=== PATIENT | male | born 1995 | race Caucasian/White ===

== ENCOUNTER 2017-08-05 18:27 | Inpatient (IN) | payer SELFPAY ==
[2017-08-05] MEDS ORDERED: ONDANSETRON 4 MG/2 ML VIAL IVP ONE (18:40)
[2017-08-05] MEDS ORDERED: fentaNYL 100 MCG/2 ML INJ IVP ONE (18:40)
[2017-08-05] MEDS ORDERED: NS 1,000 ML IV ONE (18:40)
--- NOTE | 2017-08-05 18:47 | EDPHY ---
H & P Smoking Status: Current every day smoker Time Seen by Provider: 08/05/17 18:34 HPI/ROS: CHIEF COMPLAINT: Right-sided abdominal pain HISTORY OF PRESENT ILLNESS: 21-year-old man developed abdominal pain at around 3:00 a.m. Today. Got worse when he woke up and now is localized to the right lower quadrant, worse with any movement and bumps in the car on the way here driven by his older brother. Pain severe, does not radiate. No fevers or chills no nausea or vomiting no diarrhea and no recent injury or trauma. No urinary or testicular symptoms. REVIEW OF SYSTEMS: Eye: no change in vision ENT: no sore throat Cardiac: no chest pain or syncope Pulmonary: no cough or SOB Abdomen: HPI Musculoskeletal: no back pain Skin: no rash Neuro: no headache Constitutional: no fever : no urinary symptoms A comprehensive 10 point review of systems is otherwise negative aside from elements mentioned in the history of present illness. PAST MEDICAL HISTORY: Negative Social history: Occasional alcohol, tobacco smoker General Appearance: Alert and conversant, cooperative. Eyes: No scleral icterus. ENT, Mouth: Normal mucous membranes. Respiratory: Normal respiratory effort, breath sounds equal, lungs are clear to auscultation. Cardiovascular: Regular rate and rhythm. Gastrointestinal: Normal male . McBurney's point tenderness with referred pain in the right lower quadrant on palpation of the left lower quadrant. Guarding and rebound in the right lower quadrant. Neurological: Alert, face symmetric, normal motor and sensory in extremities. Skin: Warm and dry, no rashes. Musculoskeletal: No peripheral edema. Psychiatric: Not agitated. Emergency Department course/MDM: Fentanyl 100 mcg IV. Surgical consultation for probable appendicitisYolanda in ED at 1999. Likely IV antibiotics and to OR. (Efraín Stearns) Constitutional: Initial Vital Signs Temperature (C) 36.6 C 08/05/17 18:30 Heart Rate 80 08/05/17 18:30 Respiratory Rate 18 08/05/17 18:30 Blood Pressure 176/132 H 08/05/17 18:30 O2 Sat (%) 97 08/05/17 18:30 O2 Delivery Mode Room Air Allergies/Adverse Reactions: No Known Allergies Allergy (Unverified 08/05/17 18:30) Home Medications: Medication Instructions Recorded NK [No Known Home Meds] 08/05/17 Medical Decision Making Consult/Admit Bed Type: Yolanda Cummings4 will see in ED, no CT ED Course/Re-evaluation: This patient was signed out to me at change of shift. Dr. David Guerrero saw the patient and he is in agreement that the patient most likely has acute appendicitis and an acute abdomen. He will take the patient to the operating room. I have ordered Flagyl 500 mg and Levaquin 7 her 50 mg IV preoperatively. Patient is comfortable. (Channing Anderson) Differential Diagnosis: Differential considered including but not limited to renal colic, UTI, appendicitis, mesenteric adenitis (Efraín Stearns) - Data Points Laboratory Results: Laboratory Results 08/05/17 18:40 08/05/17 08/05/17 18:45 18:40 WBC 15.33 10^3/uL H 10^3/uL (3.80-9.50) RBC 4.32 10^6/uL L 10^6/uL (4.40-6.38) Hgb 13.1 g/dL L g/dL (13.7-17.5) POC Hgb 14.6 gm/dL gm/dL (13.7-17.5) Hct 39.6 % L % (40.0-51.0) POC Hct 43 % % (40-51) MCV 91.7 fL fL (81.5-99.8) MCH 30.3 pg pg (27.9-34.1) MCHC 33.1 g/dL g/dL (32.4-36.7) RDW 13.1 % % (11.5-15.2) Plt Count 376 10^3/uL 10^3/uL (150-400) MPV 9.2 fL fL (8.7-11.7) Neut % (Auto) 83.2 % H % (39.3-74.2) Lymph % (Auto) 7.9 % L % (15.0-45.0) Graves % (Auto) 7.4 % % (4.5-13.0) Eos % (Auto) 0.8 % % (0.6-7.6) Baso % (Auto) 0.2 % L % (0.3-1.7) Nucleat RBC Rel Count 0.0 % % (0.0-0.2) Absolute Neuts (auto) 12.77 10^3/uL H 10^3/uL (1.70-6.50) Absolute Lymphs (auto) 1.21 10^3/uL 10^3/uL (1.00-3.00) Absolute Monos (auto) 1.13 10^3/uL H 10^3/uL (0.30-0.80) Absolute Eos (auto) 0.12 10^3/uL 10^3/uL (0.03-0.40) Absolute Basos (auto) 0.03 10^3/uL 10^3/uL (0.02-0.10) Absolute Nucleated RBC 0.00 10^3/uL 10^3/uL (0-0.01) Immature Gran % 0.5 % % (0.0-1.1) Immature Gran # 0.07 10^3/uL 10^3/uL (0.00-0.10) POC Sodium 137 mEq/L mEq/L (135-145) POC Potassium 3.5 mEq/L mEq/L (3.3-5.0) POC Chloride 100 mEq/L mEq/L (97-110) POC BUN 15 mg/dL mg/dL (7-23) POC Creatinine 1.2 mg/dL mg/dL (0.7-1.3) POC Glucose 103 mg/dL H mg/dL (70-100) Medications Given: Levofloxacin/Dextrose (Levaquin 750 Mg (Premix)) 150 mls @ 100 mls/hr IV EDNOW ONE PRN Reason: Protocol Stop: 08/05/17 21:45 Last Admin: 08/05/17 20:33 Dose: 150 mls Metronidazole/Sodium Chloride (Flagyl 500 Mg (Premix)) 100 mls @ 100 mls/hr IV EDNOW ONE PRN Reason: Protocol Stop: 08/05/17 21:15 Last Admin: 08/05/17 20:25 Dose: 100 mls Discontinued Medications Fentanyl (Sublimaze) 100 mcg IVP EDNOW ONE Stop: 08/05/17 18:41 Last Admin: 08/05/17 18:52 Dose: 100 mcg Hydromorphone HCl (Dilaudid) 0.5 mg IVP EDNOW ONE Stop: 08/05/17 20:14 Last Admin: 08/05/17 20:25 Dose: 0.5 mg Sodium Chloride (Ns) 1,000 mls @ 0 mls/hr IV EDNOW ONE; Wide Open PRN Reason: Protocol Stop: 08/05/17 18:41 Last Admin: 08/05/17 18:52 Dose: 1,000 mls Ondansetron HCl (Zofran) 4 mg IVP EDNOW ONE Stop: 08/05/17 18:41 Last Admin: 08/05/17 18:53 Dose: 4 mg Point of Care Test Results: Chemistry 08/05/17 18:45 POC Sodium 137 mEq/L mEq/L (135-145) POC Potassium 3.5 mEq/L mEq/L (3.3-5.0) POC Chloride 100 mEq/L mEq/L (97-110) POC BUN 15 mg/dL mg/dL (7-23) POC Creatinine 1.2 mg/dL mg/dL (0.7-1.3) POC Glucose 103 mg/dL H mg/dL (70-100) ISTAT H&H 08/05/17 18:45 POC Hgb 14.6 gm/dL gm/dL (13.7-17.5) POC Hct 43 % % (40-51) Departure - Departure Disposition: To OP Cath/Surgery Clinical Impression: Acute appendicitis Qualifiers: Acute appendicitis type: with localized peritonitis Qualified Code(s): K35.3 - Acute appendicitis with localized peritonitis Condition: Good
[2017-08-05 19:01] LABS: PLATELET COUNT 376 10^3/uL (150-400)
[2017-08-05] MEDS ORDERED: HYDROmorphONE/DILAUDID 2 MG/ML INJ IVP ONE (20:13)
[2017-08-05] MEDS ORDERED: BUPIVACAINE/EPI 0.5% 30 ML SDV ONE (20:41)
--- NOTE | 2017-08-05 20:48 | GHP ---
[f rep st] PREOP HISTORY AND PHYSICAL DATE OF ADMISSION: 08/05/2017 CHIEF COMPLAINT: Right lower quadrant pain. PRESENT ILLNESS: A 21-year-old male who states he awoke early this morning with a right lower abdomi nal pain. He had trouble walking. Bumps in the car on the ride to the hospital were very painful. Hoda tamez has been nauseated. He has never felt like this before. Laboratory exams included a white blood c ount of 15,000. ALLERGIES: None. CURRENT MEDICATIONS: None. SOCIAL HISTORY: Smokes quarter pack of cigarettes a day. Used to smoke a pack a day. Drinks a cathy le of whiskey every 3 days, which he states is less than he used to drink. He is employed at [employer]. REVIEW OF SYSTEMS: Denies asthma, heart trouble, diabetes, epilepsy, rheumatic fever. PREVIOUS SURGERY: None. PHYSICAL EXAM: GENERAL APPEARANCE: Ill-appearing male, diaphoretic, mildly tachycardic, slightly hy pertensive. HEENT: Poor dentition. No scleral icterus. Pharynx clear. NECK: Supple without chente opathy. LUNGS: Clear. HEART: Normal. S1, S2, but a heart rate of 115. ABDOMEN: Soft except the right lower quadrant has guarding and rebound. There is referred pain from the left to the right as well. ASSESSMENT: Probable acute appendicitis. Other sources of severe right lower quadrant pain in a you ng male would be much less common such as perforated Meckel diverticulitis, diverticulitis, etc., and this seems unusually severe for a viral disorder such as mesenteric adenitis. I discussed with the patient the role of CT scanning or other imaging and stated that with his severe pain, I did not feel we needed imaging to help us make a decision. I have recommended we proceed with an appendectomy. I explained this might be done laparoscopically or open. Risks and benefits, including potential for prolonged need for hospitalization and antibiotic should the appendix be ruptured were all explained to the patient. He is anxious to proceed. /[id number]/MODL
[2017-08-05] MEDS ORDERED: LR 1,000 ML IV ONE (20:51)
--- NOTE | 2017-08-05 20:51 | PDANEPAE ---
ANE History of Present Illness appendectomy ANE Past Medical History - Cardiovascular History Hx Hypertension: No Hx Arrhythmias: No Hx Chest Pain: No Hx Coronary Artery / Peripheral Vascular Disease: No Hx CHF / Valvular Disease: No Hx Palpitations: No - Pulmonary History Hx COPD: No Hx Asthma/Reactive Airway Disease: No Hx Recent Upper Respiratory Infection: No Hx Oxygen in Use at Home: No Hx Sleep Apnea: No Pulmonary History Comment: shortness of breath in high school - Endocrine History Hx Diabetes: No Hypothyroid: No Hyperthyroid: No Obesity: mild - Renal History Hx Renal Disorders: No - Liver History Hx Hepatic Disorders: No - Neurological & Psychiatric Hx Hx Neurological and Psychiatric Disorders: No - Cancer History Hx Cancer: No - Congenital Disorder History Hx Congenital Disorders: No - GI History GERD: no Hx Gastrointestinal Disorders: Yes - Chronic Pain History Chronic Pain: No - Surgical History Prior Surgeries: None ANE Review of Systems Review of Systems: - Exercise capacity METS (RN): 4 METS ANE Patient History - Allergies Allergies/Adverse Reactions: No Known Allergies Allergy (Unverified 08/05/17 18:30) - Home Medications Home Medications: NK [No Known Home Meds] 08/05/17 [Last Taken Unknown] - NPO status NPO Since - Liquids (Date): 08/05/17 NPO Since - Liquids (Time): 18:00 NPO Since - Solids (Date): 08/05/17 NPO Since - Solids (Time): 13:00 - Anes Hx Hx Anesthesia Complications (with details): no prior surgery - Smoking Hx Smoking Status: Current every day smoker Marijuana use: Yes - Alcohol Use Alcohol Use: Other (about 1 gallon/week) - Family Anes Hx Family Anes Hx: none ANE Labs/Vital Signs - Labs Result Diagrams: 08/05/17 18:40 - Vital Signs Blood Pressure: 167/114 Heart Rate: 76 Respiratory Rate: 20 O2 Sat (%): 96 Height: 172.72 cm Weight: 90.718 kg ANE Physical Exam - Airway Neck exam: FROM Mallampati Score: Class 3 Mouth exam: poor dentition - Pulmonary Pulmonary: clear to auscultation - Cardiovascular Cardiovascular: regular rate and rhythym - ASA Status ASA Status: II, E ANE Anesthesia Plan Anesthesia Plan: general endotracheal anesthesia
[2017-08-05] MEDS ORDERED: MIDAZOLAM 2 MG/2 ML VIAL IVP ONE (20:55)
[2017-08-05] MEDS ORDERED: MIDAZOLAM 2 MG/2 ML VIAL ONE (20:57)
[2017-08-05] MEDS ORDERED: fentaNYL 250 MCG/5 ML INJ ONE (21:00)
[2017-08-05] MEDS ORDERED: ROCURONIUM 50 MG/5 ML VIAL ONE (21:01)
[2017-08-05] MEDS ORDERED: SUCCINYLCHOLINE CHLORIDE 200 MG/10 ML SYR IVP ONE (21:01)
[2017-08-05] MEDS ORDERED: DEXAMETHASONE 4 MG/ML VIAL ONE (21:01)
[2017-08-05] MEDS ORDERED: PROPOFOL 200 MG/20 ML VIAL ONE ×2 (21:01→21:15)
[2017-08-05] MEDS ORDERED: METOCLOPRAMIDE 10 MG/2 ML VIAL ONE (21:02)
[2017-08-05] MEDS ORDERED: LABETALOL HCL 5 MG/ML 20 ML MDV ONE (21:12)
[2017-08-05] MEDS ORDERED: ONDANSETRON 4 MG/2 ML VIAL ONE (21:45)
[2017-08-05] MEDS ORDERED: SUGAMMADEX SODIUM 200 MG/2 ML VIAL IVP ONE ×2 (22:00)
[2017-08-05] MEDS ORDERED: IOPAMIDOL (ISOVUE-300) 100 ML BTL ONE (22:19)
--- NOTE | 2017-08-05 22:22 | POSTOPPROG ---
Post Op Note Date of Operation: 08/05/17 Surgeon: David Guerrero Pre-op Diagnosis: appendicitis Post-op Diagnosis: right retroperitoneal mass Procedure: exam under anesthesia, laparoscopy Findings: some hemorrhage in right gutter, prob retroperitoneal mass high right , live Inf/Abcess present in the surg proc area at time of surgery?: No
[2017-08-05] MEDS ORDERED: HYDROmorphONE/DILAUDID 1 MG/ML INJ IVP PRN (22:23)
[2017-08-05] MEDS ORDERED: ONDANSETRON 4 MG/2 ML VIAL IVP PRN (22:23)
[2017-08-05] MEDS ORDERED: LABETALOL HCL 5 MG/ML 20 ML MDV IVP PRN (22:23)
[2017-08-05] MEDS ORDERED: fentaNYL 100 MCG/2 ML INJ IVP PRN (22:23)
[2017-08-05] MEDS ORDERED: NALOXONE HCL 0.4 MG/ML INJ IVP PRN (22:23)
--- NOTE | 2017-08-05 22:26 | POSTANESTH ---
Post Anesthetic Evaluation Cardiovascular Status: Similar to Pre-Op Cond Respiratory Status: Normal, Stable Level of Consciousness/Mental Status: Can Participate in Eval Pain Control: Adequate, Prn Tx Ordered Nausea/Vomiting Control: Adequate, Prn Tx Ordered Complications Possibly Related to Anesthesia: None Noted (Improved BP in PACU, after IV labetalol. Will treat as needed.)
--- NOTE | 2017-08-05 23:09 | GOP ---
[f rep st] OPERATIVE REPORT DATE OF ADMISSION: 08/05/2017 PREOPERATIVE DIAGNOSIS: Appendicitis. POSTOPERATIVE DIAGNOSIS: Retroperitoneal mass, right. OPERATION: Exam under anesthesia, laparoscopy. SURGEON: David Guerrero MD. INDICATIONS: 21-year-old male who presented with leukocytosis, right lower quadrant pain, rebound, clinically acute appendicitis. A CT scan was not done. PROCEDURE: Patient had a general anesthetic. The abdomen was palpated, and there was no mass in the right lower quadrant but a firm, surprising mass in the right upper quadrant. A 5 mm incision was made below the umbilicus, and a laparoscopic camera introduced. This showed some hemorrhage in the area of the right gutter extending down towards the cecum, which was in its normal location , and up along the right gutter. The right colon seemed fairly ventral suggesting that the palpable mass was retroperitoneal on the right. Liver and gallbladder were completely normal in appearance. It was felt appropriate to not pursue any further laparotomy or other operative interventions at this time but to wake the patient up, get a CT scan, and identify what this unusual presentation was. Camera was removed. Skin closed with 4-0 Vicryl and Dermabond. Ryan catheter was placed because the patient could not void preop and had an obvious full bladder. /[id number]/MODL MTDD
[2017-08-05] MEDS ORDERED: KETOROLAC 30 MG/1 ML SDV IVP ONE (23:56)
[2017-08-06] MEDS: HYDROmorphONE/DILAUDID 1 MG/ML INJ IVP PRN ×7 (02:25→15:13)
[2017-08-06] MEDS: LR 1,000 ML IV SCH ×2 (02:32→11:13)
[2017-08-06] MEDS: KETOROLAC 15 MG/1 ML SDV IVP SCH ×3 (05:15→19:44)
[2017-08-06] MEDS: ONDANSETRON 4 MG/2 ML VIAL IVP PRN (06:02)
--- NOTE | 2017-08-06 09:28 | SOAPPROG ---
SOAP Progress Note Assessment/Plan: Assessment: Plan: Subjective: right abd pain improved with dilaudid and toradol. ct showed upj obstruction with right hydro and perinephric blood- lv vincent to see today Objective: Vital Signs Temp Pulse Resp BP Pulse Ox 36.8 C 76 12 151/103 H 95 08/06/17 07:52 08/06/17 07:52 08/06/17 07:52 08/06/17 07:52 08/06/17 07:52 Laboratory Results 08/06/17 05:30 08/05/17 08/06/17 08/07/17 05:59 05:59 05:59 Intake Total 1500 Output Total 1601 Balance -101 ICD10 Worksheet Patient Problems: Problems Problem Status Onset Acute appendicitis Acute
[2017-08-06] MEDS ORDERED: LABETALOL HCL 5 MG/ML 20 ML MDV IVP PRN (09:40)
--- NOTE | 2017-08-06 09:42 | PDMN ---
Medical Necessity Medical necessity: [facility] urology, hydronephrosis 1 day: Dg laparoscopy, CT shows R hydronephrosis, and perinephric blood suggesting hemorrhage. further monitoring , eval and tx needed anticipate > 2 midnights, consult pending
[2017-08-06] MEDS ORDERED: HYDROmorphONE/DILAUDID 1 MG/ML INJ IVP ONE (09:45)
[2017-08-06] MEDS ORDERED: IOPAMIDOL (ISOVUE-M 300) 15 ML VIAL ONE (16:49)
[2017-08-06] MEDS ORDERED: LIDOCAINE 2% JELLY 20 ML (UROJECT) ONE (16:49)
--- NOTE | 2017-08-06 17:05 | ASMTCMCOM ---
CM Note CM Note Notes: 21yr old male admitted for abdominal pain thought to be appendicitis. Surgeon found a R upper quasrant mass. CT-scan- R hydronephrosis. Dr Miller to consult. CM to follow. Date Signed: 08/06/2017 05:05 PM Electronically Signed By:Sena Lamb LCSW
[2017-08-06] MEDS ORDERED: levOFLOXACIN 500 MG/DEXTROSE 100 ML IV ONE (17:35)
[2017-08-06] MEDS ORDERED: levOFLOXACIN 500 MG/DEXTROSE/100 ML BAG IV ONE (17:40)
--- NOTE | 2017-08-06 18:02 | SOAPPROG ---
SOAP Progress Note Assessment/Plan: Assessment: Right hydronephrosis w/ perinephric urine + blood per CT scan: hydro probably due to UPJ obstruction. Unclear etiology for blood. Plan: Intraoperative cysto, right RGP, right ureteral stent placement (# [id number]) Subjective: See dictated consult note. Objective: Vital Signs Temp Pulse Resp BP Pulse Ox 37 C 77 16 158/108 H 94 08/06/17 16:53 08/06/17 16:53 08/06/17 16:53 08/06/17 16:53 08/06/17 16:53 08/05/17 08/06/17 08/07/17 05:59 05:59 05:59 Output Total 650 Balance -650 ICD10 Worksheet Patient Problems: Problems Problem Status Onset Acute appendicitis Acute
[2017-08-06] MEDS ORDERED: MIDAZOLAM 2 MG/2 ML VIAL IVP ONE (18:17)
--- NOTE | 2017-08-06 18:19 | PDANEPAE ---
ANE History of Present Illness urolithiasis ANE Past Medical History - Cardiovascular History Hx Hypertension: No Hx Arrhythmias: No Hx Chest Pain: No Hx Coronary Artery / Peripheral Vascular Disease: No Hx CHF / Valvular Disease: No Hx Palpitations: No - Pulmonary History Hx COPD: No Hx Asthma/Reactive Airway Disease: No Hx Recent Upper Respiratory Infection: No Hx Oxygen in Use at Home: No Hx Sleep Apnea: No Sleep Apnea Screening Result - Last Documented: Negative Pulmonary History Comment: shortness of breath in high school - Endocrine History Hx Diabetes: No Hypothyroid: No Hyperthyroid: No Obesity: mild - Renal History Hx Renal Disorders: No - Liver History Hx Hepatic Disorders: No - Neurological & Psychiatric Hx Hx Neurological and Psychiatric Disorders: No - Cancer History Hx Cancer: No - Congenital Disorder History Hx Congenital Disorders: No - GI History GERD: no Hx Gastrointestinal Disorders: Yes - Chronic Pain History Chronic Pain: No - Surgical History Prior Surgeries: None ANE Review of Systems Review of Systems: - Exercise capacity METS (RN): 4 METS ANE Patient History - Allergies Allergies/Adverse Reactions: No Known Allergies Allergy (Unverified 08/05/17 18:30) - Home Medications Home Medications: NK [No Known Home Meds] 08/05/17 [Last Taken Unknown] - NPO status NPO Since - Liquids (Date): 08/06/17 NPO Since - Liquids (Time): 00:00 NPO Since - Solids (Date): 08/06/17 NPO Since - Solids (Time): 00:00 - Smoking Hx Smoking Status: Current every day smoker - Alcohol Use Alcohol Use: Other (about 1 gallon/week) ANE Labs/Vital Signs - Labs Result Diagrams: 08/06/17 05:30 08/06/17 05:30 - Vital Signs Blood Pressure: 158/108 Heart Rate: 77 Respiratory Rate: 16 O2 Sat (%): 94 Height: 172.72 cm Weight: 90.718 kg ANE Physical Exam - Airway Neck exam: FROM Mallampati Score: Class 2 Mouth exam: poor dentition - Pulmonary Pulmonary: no respiratory distress - Cardiovascular Cardiovascular: regular rate and rhythym - ASA Status ASA Status: II ANE Anesthesia Plan Anesthesia Plan: GA w LMA
[2017-08-06] MEDS ORDERED: MIDAZOLAM 2 MG/2 ML VIAL ONE (18:20)
[2017-08-06] MEDS ORDERED: PROPOFOL 200 MG/20 ML VIAL ONE (18:24)
[2017-08-06] MEDS ORDERED: fentaNYL 100 MCG/2 ML INJ ONE (18:24)
[2017-08-06] MEDS ORDERED: HYDROmorphONE/DILAUDID 2 MG/ML INJ ONE (18:33)
--- NOTE | 2017-08-06 18:38 | GCON ---
[f rep st] CONSULTATION UROLOGY CONSULTATION NOTE PHYSCIAN REQUESTING CONSULTATION: David Guerrero MD REASON FOR CONSULTATION: Right hydronephrosis. HISTORY: This is a 21-year-old gentleman who started experiencing fairly intense right upper quadrant abdominal pain that awakened him early yesterday morning. The pain became progressively more intense and was associated with intermittent nausea and emesis. He presented to the emergency room at [facility] as a result. He was evaluated by the emergency room physician , as well as the trauma surgeon, and the working diagnosis was acute appendicitis. The patient underwent intraoperative laparoscopy yesterday which did not reveal evidence of appendicitis but did reveal some blood in the right pericolic gutter. While the patient was under anesthesia, Dr. Guerrero also noted a potential right upper quadrant abdominal mass. Therefore, appendectomy was not performed. The patient was awakened and underwent CT scan imaging last night, which revealed evidence of right hydronephrosis and possible UPJ obstruction. I was asked to see the patient as a result. Since admission, the patient has continued to have intermittent episodes of right upper quadrant abdominal pain, as well as associated nausea and emesis. Pain medications help , but did not completely eliminate the symptoms. He denies any similar episodes of pain prior to this admission. He does have a history of chronic lower back pain which he states is more in the midline. He denies any prior history of urinary tract infections, dysuria, gross hematuria, nor nephrolithiasis. PAST MEDICAL HISTORY: Chronic back pain. Otherwise unremarkable. PAST SURGICAL HISTORY: Diagnostic laparoscopy yesterday. No other surgeries. ADMISSION MEDICATIONS: None. MEDICAL ALLERGIES: None known. FAMILY HISTORY: His father and 1 of his brothers have had kidney stones previously. SOCIAL HISTORY: The patient is single and lives in the [place] area. He smokes about 5 cigarettes daily after previously smoking 1 pack a day for several years. He drinks at least 2 gallons of whiskey per week, which he states is less than what he had been previously drinking. He also smokes 3-4 bowls of marijuana daily. He works at [employer]. REVIEW OF SYSTEMS: He has a chronic lower extremity rash, which has been present for about 1-1/2 years with no etiology identified to this point. Chronic back pain, as noted above. Otherwise, no other issues other than mentioned in the HPI and Past Medical History. PHYSICAL EXAM: GENERAL: Well-developed, well-nourished white male in no acute distress presently. VITAL SIGNS: Blood pressure 158/108, pulse 77, respirations 18, oxygen saturations 94% on room air, temperature 37 degrees Celsius. Height 172 cm, weight 90 kg, BMI 30. HEENT: Normocephalic, atraumatic. Poor dentition. NECK: Supple. HEART: Regular rate. CHEST: Unlabored respiratory pattern. ABDOMEN: Soft with mild right upper quadrant tenderness to palpation. No peritoneal signs nor involuntary guarding. BACK: Mild right CVA tenderness to percussion. GENITALIA: Normal penis and scrotal structures. EXTREMITIES: Warm without cyanosis, clubbing, or edema. NEUROLOGIC: He is alert and oriented. He answers all questions appropriately with normal mood and affect. IMAGING STUDIES: 08/[address] scan with delayed postcontrast imaging : Upon my review, notable for moderate right hydronephrosis with no obvious hydroureter. It is difficult to easily visualize the location of the ureter. No nephroureterolithiasis. There is markedly delayed right renal collecting system contrast uptake. There is also a significant right-sided perinephric fluid collection that is either urine versus hemorrhage versus both. It is hard to assess the right renal cortical thickness due to the associated perinephric fluid collection. The left kidney appears normal. LABORATORIES: CBC today notable for white blood cell count 21,000, compared to 15,000 on admission yesterday. Chemistry panel today is unremarkable, creatinine 0.9. 08/06 urinalysis is negative. IMPRESSION: Right hydronephrosis: Probably secondary to ureteropelvic junction obstruction. PLAN: The patient will undergo intraoperative cystoscopy, right retrograde pyelography, and attempted ureteral stent placement this afternoon. He understands there is a possibility that stent placement might not be possible and that he may require right nephrostomy tube placement through Interventional Radiology with attempted antegrade ureteral stent placement. It has also been explained to him that ureteral stenting is a temporary measure and is not meant to be a permanent solution to any underlying renal/ureteral obstructive issues. Thank you for this consultation. /[id number]/MODL MTDD
[2017-08-06] MEDS ORDERED: NALOXONE HCL 0.4 MG/ML INJ IVP PRN (19:03)
[2017-08-06] MEDS ORDERED: fentaNYL 100 MCG/2 ML INJ IVP PRN (19:03)
[2017-08-06] MEDS ORDERED: ONDANSETRON 4 MG/2 ML VIAL IVP PRN (19:03)
[2017-08-06] MEDS ORDERED: HYDROmorphONE/DILAUDID 1 MG/ML INJ IVP PRN (19:03)
[2017-08-06] MEDS ORDERED: PROMETHAZINE HCL 25 MG/ML INJ IVP PRN (19:03)
[2017-08-06] MEDS ORDERED: HYDROCODONE/APAP 5/325 TAB PO PRN (19:03)
--- NOTE | 2017-08-06 19:05 | POSTANESTH ---
Post Anesthetic Evaluation Cardiovascular Status: Normal, Stable Respiratory Status: Normal, Stable Level of Consciousness/Mental Status: Can Participate in Eval Pain Control: Adequate, Prn Tx Ordered Nausea/Vomiting Control: Adequate, Prn Tx Ordered Complications Possibly Related to Anesthesia: None Noted
[2017-08-06] MEDS ORDERED: LABETALOL HCL 5 MG/ML 20 ML MDV ONE (19:08)
--- NOTE | 2017-08-06 19:14 | POSTOPPROG ---
Post Op Note Date of Operation: 08/06/17 Surgeon: Rafal Miller (# [id number]) Anesthesia: LMA Pre-op Diagnosis: Right hydronephrosis Post-op Diagnosis: Right hydronephrosis due to UPJ obstruction Procedure: Cysto, Right RGP, ureteral stent placement (4.7 Fr. variable length) Findings: See op note Inf/Abcess present in the surg proc area at time of surgery?: No EBL: Minimal Complications: None Drains: Other (Right ureteral stent) Specimen(s): None Text Box - Additional Text Additional Text: May discharge at anytime from my standpoint. Rx. for Pyridium on chart. Needs to FU w/ me in 4 weeks -- call office to schedule.
[2017-08-06] MEDS: LABETALOL HCL 5 MG/ML 20 ML MDV IVP PRN ×2 (19:16→19:33)
--- NOTE | 2017-08-06 19:38 | GOP ---
[f rep st] OPERATIVE REPORT DATE OF OPERATION: 08/06/2017 SURGEON: Rafal Miller MD ANESTHESIA: Laryngeal mask. PREOPERATIVE DIAGNOSIS: Right hydronephrosis. 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 PROCEDURE PERFORMED: 1. Cystourethroscopy and right retrograde pyelography. 2. Right ureteral stent placement (4.7-Trinidadian variable length). FINDINGS: Moderate to severe right hydronephrosis with retrograde pyelographic evidence of ureteropelvic junction obstruction and high insertion of the ureter into the renal pelvis. SPECIMENS: None. ESTIMATED BLOOD LOSS: Minimal. INDICATIONS: This gentleman was admitted with right-sided abdominal pain yesterday. Diagnostic laparoscopy for appendicitis was negative. The patient was noted to have subsequent right hydronephrosis and perinephric extravasation on CT scan. I was asked to see the patient as a result. Ureteral stenting has been recommended. The indications for the procedures, as well as potential risks and complications were discussed with the patient preoperatively. He appeared to understand, his questions were answered, and he wished to proceed. Written informed surgical consent was thereafter obtained. DESCRIPTION OF PROCEDURE: The patient was brought to the operating room and administered laryngeal mask anesthesia. He was carefully placed in the dorsal lithotomy position on the cystoscopic table. The genital area was sterilely prepped with Betadine scrub and paint then draped in the usual sterile fashion. Cystoscopy was performed with a 30-degree lens through a 22-Trinidadian sheath. Fossa navicularis was somewhat narrowed, but I was able to navigate through it without requiring formal dilation. The remainder of the anterior urethra was unremarkable. Posterior urethra was normal. Bladder was also normal. No areas of abnormal erythema, tumors, nor foreign bodies were appreciated. Ureteral orifices were normal in regards to shape and position along the trigone. A 5-Trinidadian open-ended ureteral catheter was used to perform retrograde pyelography on the right side. This revealed normal ureter until the ureteropelvic junction was reached, at which point there appeared to be narrowing, as well as high insertion of the ureter into the renal pelvis. Renal pelvis and calyceal system were moderately to severely dilated. I then passed an 0.035-inch hydrophilic guidewire through the ureteral catheter into the renal collecting system as noted fluoroscopically. The ureteral catheter was removed, and a 4.7-Trinidadian variable length hydrophilic ureteral stent advanced over the guidewire until it was properly positioned as seen fluoroscopically in the kidney and cystoscopically in the bladder. The bladder was then drained of all return, which was relatively clear. The instruments were removed and 20 cc of 2% lidocaine injected transurethrally for postoperative analgesic purposes. The patient was then awakened, transferred to his bed, and then taken to the recovery room. He tolerated the procedure well overall. COMPLICATIONS: None. DISPOSITION: He was transferred to the recovery room in stable condition. He can be discharged at any time from my standpoint, and he needs to return to my office in approximately 4 weeks. I have left an Rx for Pyridium t.i.d., which he should take for the next couple of weeks. I have also explicitly explained to the patient and his brother Clarence that ureteral stenting is only a temporary solution and that the ureteral stent needs to be either removed or replaced at some point over the next several months in order to avoid permanent kidney damage. /[id number]/MODL MTDD
[2017-08-06] MEDS ORDERED: PHENAZOPYRIDINE HCL 200 MG TAB ONE (19:50)
[2017-08-06] MEDS ORDERED: KETOROLAC 15 MG/1 ML SDV ONE (19:50)
[2017-08-06] MEDS: PHENAZOPYRIDINE HCL 200 MG TAB PO SCH ×2 (19:52→22:41)
[2017-08-06] MEDS ORDERED: KETOROLAC 15 MG/1 ML SDV IVP ONE (20:00)
[2017-08-07] MEDS: KETOROLAC 15 MG/1 ML SDV IVP SCH ×2 (00:22→05:56)
[2017-08-07] MEDS: HYDROmorphONE/DILAUDID 1 MG/ML INJ IVP PRN (02:51)
[2017-08-07] MEDS: ONDANSETRON 4 MG/2 ML VIAL IVP PRN (06:21)
--- NOTE | 2017-08-07 06:55 | GDS ---
[f rep st] DISCHARGE SUMMARY The patient was admitted with right-sided abdominal pain, presumed acute appendicitis. HOSPITAL COURSE: The patient was taken to the operating room where an exam under anesthesia showed a right upper quadrant mass. Laparoscopy was done showing hemorrhagic changes in the right retroperit oneum, normal-appearing colon and clearly retroperitoneal mass. The patient was then taken to CT sca n which showed right hydronephrosis presumably from the UPJ obstruction. Urology was consulted, and Dr. Leonardo Miller took the patient to the operating room on 08/06/2017, place d a stent on the right side. The CT scan showed hemorrhage around the right kidney. At the time of discharge patient feels better, although right upper quadrant mass persists because of the persistent hemorrhage. FINAL DIAGNOSES: Abdominal pain, right ureteropelvic junction obstruction with right hydronephrosis and perinephric hemorrhage. OPERATIONS: 1. Laparoscopy exam under anesthesia. 2. Ureteroscopy with right stent placement. DISPOSITION: Follow up with Dr. Leonardo Miller. The patient has a prescription of Pyridium. /[id number]/MODL
[2017-08-07] MEDS: PHENAZOPYRIDINE HCL 200 MG TAB PO SCH (08:08)
[2017-08-07 08:13] VITALS: BP 137/101
--- NOTE | 2017-08-07 08:58 | ASMTLACE ---
LACE Length of stay for Answers: Less than 1 day current admission Acuity / Level of Answers: Yes Care: Did the patient have an inpatient admission? Comorbidities - select Answers: Other Notes: upper quadrant mass all that apply # of Emergency department Answers: 1-2 visits in the last 6 months Social determinants Answers: History of substance abuse (ETOH, street drugs, prescription drugs, etc.) Score: 8 Date Signed: 08/07/2017 08:57 AM Electronically Signed By:Laurel Watson RN
--- NOTE | 2017-08-07 08:58 | ASDISCHSUM ---
Discharge Information Plan Status:Home with No Needs Medically Cleared to Leave:08/07/2017 Discharge Date:08/07/2017 CM D/C Disposition:Home, Routine, Self-Care ADT D/C Disposition:Home, Routine, Self-Care Projected Discharge Date:08/07/2017 Transportation at D/C: Discharge Delay Reason: Follow-Up Date:08/07/2017 Discharge Slot: Final Diagnosis: Placement Information Patient Contact Information Contact Name:RANDYNMCISABELWENDI Relationship: Address:[address] City:[place] Alternate Phone: [facility]/Zip Code:[place] [address] Email: Financial Information Financial Class:Self-Pay Primary Plan Desc:SELF PAY Primary Plan Number: Secondary Plan Desc: Secondary Plan Number: Assessment Information [facility] CM Progress Note CM Note CM Note Notes: 21yr old male admitted for abdominal pain thought to be appendicitis. Surgeon found a R upper quasrant mass. CT-scan- R hydronephrosis. Dr Miller to consult. to follow. Date Signed: 08/06/2017 05:05 PM Electronically Signed By:Sena Lamb LCSW Intervention Information
== END 2017-08-07 09:00 | disposition home or self-care (01) | DRG 357 ==
LOC: F3E 23:15 → OBSVTOIN 08-06 09:30
PROVIDERS: ADMIT Surgery; ATTEND Surgery
DX: R19.09 Other intra-abdominal and pelvic swelling, mass and lump (principal); N13.0 Hydronephrosis with ureteropelvic junction obstruction; M54.5 Low back pain; R21 Rash and other nonspecific skin eruption; F17.210 Nicotine dependence, cigarettes, uncomplicated
CPT/HCPCS: 82435-PO; 82565-PO; 82947-PO; 84132-PO; 84295-PO; 84520-PO; 85014-PO; 96365; C1758; C1769; C2625; J0330; J1100; J1170; J1885; J1956; J2250; J2405; J2704; J2765; J3010; Q9967

== ENCOUNTER → 2017-08-21 | Outpatient (CLI) | payer OTHER ==
[~2017-08-21] MED LIST: IOPAMIDOL (ISOVUE-300) 150 ML BTL ONE
== END ==
LOC: FIMAGING 10:22
PROVIDERS: ATTEND Specialist
DX: Z09 Encounter for follow-up examination after completed treatment for conditions other than malignant neoplasm (principal); Z87.718 Personal history of other specified (corrected) congenital malformations of genitourinary system; S37.011A Minor contusion of right kidney, initial encounter; N28.83 Nephroptosis; Z96.0 Presence of urogenital implants
CPT/HCPCS: Q9967